=== PATIENT | male | born 1950 | race Caucasian/White ===

== ENCOUNTER 2024-10-31 18:03 | Emergency (ER) | payer OTHER ==
[2024-10-31] MEDS: Bacitracin Oint 1 GM U/D Packet TOP ONE (21:03)
[2024-10-31] MEDS: Lidocaine 1% with EPINEPHrine 1:100,000 50 ML MDV SUBCUT STA (21:04)
== END 2024-10-31 21:29 | disposition home or self-care (01) ==
LOC: JP.ED 18:03
DX: S81.812A Laceration without foreign body, left lower leg, initial encounter (principal); I10 Essential (primary) hypertension; Z79.899 Other long term (current) drug therapy; W22.8XXA Striking against or struck by other objects, initial encounter
CPT/HCPCS: 12002; 99282